=== PATIENT | male | born 2000 | race Caucasian/White ===

== ENCOUNTER 2023-11-29 19:12 | Emergency (ER) | payer SELFPAY ==
[2023-11-29 19:31] VITALS: BP 104/56; PULSE 59; RESP 20; TEMP 98.6; BMI 23.6
[2023-11-29] MEDS ORDERED: KETOROLAC TROMETHAMINE 30 MG/1 ML VIAL ONE (21:10)
[2023-11-29] MEDS: KETOROLAC TROMETHAMINE 30 MG/1 ML VIAL IM ONE (21:14)
[2023-11-29] MEDS: PENICILLIN V POTASSIUM 500 MG TABLET PO ONE (21:23)
== END 2023-11-29 21:52 | disposition home or self-care (01) ==
LOC: JERFT 19:12
PROC: 3E0233Z Introduction of Anti-inflammatory into Muscle, Percutaneous Approach (ICD-10-PCS; principal; 2023-11-29)
DX: K08.89 Other specified disorders of teeth and supporting structures (principal)
CPT/HCPCS: 99284-25